=== PATIENT | female | born 1980 | race Two or more races ===

== ENCOUNTER → 2019-09-21 | Outpatient (CLI) | payer OTHER | END | disposition home or self-care (01) | LOC: PRENATAL 09:41 | DX: O36.80X1 Pregnancy with inconclusive fetal viability, fetus 1 (principal); O09.521 Supervision of elderly multigravida, first trimester; O09.291 Supervision of pregnancy with other poor reproductive or obstetric history, first trimester ==

== ENCOUNTER → 2019-11-10 | Outpatient (CLI) | payer OTHER | END | disposition home or self-care (01) | LOC: PRENATAL 10:00 | DX: O35.3XX2 Maternal care for (suspected) damage to fetus from viral disease in mother, fetus 2 (principal); O09.522 Supervision of elderly multigravida, second trimester ==

== ENCOUNTER → 2020-01-25 | Outpatient (CLI) | payer OTHER | END | disposition home or self-care (01) | LOC: PRENATAL 10:00 | DX: O26.843 Uterine size-date discrepancy, third trimester (principal); O09.523 Supervision of elderly multigravida, third trimester ==